=== PATIENT | female | born 1960 | race Caucasian/White ===

== ENCOUNTER 2024-09-03 10:27 | Outpatient (RCR) | payer OTHER, MEDICAID, SELFPAY ==
--- NOTE | 2024-09-03 17:18 | ST.OPIE ---
Visit Care Team Role Provider Type Ruth Davila PA-C Attending Provider Non-Staff Family Provider Primary Care Provider Referring Provider Specialty: Medical Address: [address] [place] [address], [place], [id number] Email: Speech-Language Pathology Initial Evaluation INK GRINDER Voice Resonance Evaluation Start: 09/03/24 17:00 Freq: Status: Active Protocol: Document 09/03/24 17:00 SS (Rec: 09/03/24 17:18 SS [id number]) Voice and Resonance Assessment Session Time Visit Start Time 10:45 Visit Stop Time 11:20 Total Visit Minutes 35 Visit Information Visit Number 1 Plan of Care Dates 09/03/24-01/01/25 Insurance Information [facility] [employer] (max 12 visits including evaluation) VISIT 08/23 Next Note Type Next Note Type Treatment Note Referral Referring Physician Dr. Ruth Davila Reason for Referral Dysphonia Setting Setting Outpatient Care Patient History Patient History Hayde Malagon is a 64-year- old female presenting to this clinic for an evaluation of voice following referral by her PCP, Dr. Davila. She reports she has not been seen by an ENT. PMHx includes GERD which she manages with medication. She reports she has a ?slight case? of asthma and a history of bronchitis, though has not had active symptoms in several years. Pt reports that that her voice began sounding hoarser about two years ago. She also reports vocal breaks and general vocal fatigue as day progresses and speaks more. She denies recent hx of URIs and pain with phonation. She reports increased difficulty with swallowing, noting increased effort. Pt reports that she does not drink alcohol, does not consume caffeine, and does not smoke. She drinks about six glasses of water every day. Vocal activities include speaking on the phone and socially. While her dysphonia has not significantly impacted her ability to communicate, she often avoids speaking for extended periods of time or in crowded/noisy environments. Pt was previously seen at [facility] for a voice evaluation in 2022, though did not attend treatment sessions and POC was discontinued. Hearing Hearing Level Normal Vision Vision Status Not Impaired Educational Status Education Level BA degree Occupational Status Occupation Status Currently unemployed Previous Therapy Previous Speech-Language Therapy No History of Previous Therapy Evaluation of voice. Pt did not attend treatment sessions. Oral Motor Assessment Source: [employer] ([employer] Oral-Motor Eval Completed Yes Oral-Motor Assessment CN V (Trigeminal) Intact b/l CN VII (Facial) Intact b/l CN IX/X (Glossopharyngeal/ Vagus) Unable to exclude CN X branch involvement 2/2 dysphonia CN XII (Hypoglossal) Intact b/ l Subjective Subjective Pt arrived to the session on time. She agreed to participate in all therapy activities. - Laryngeal Performance S/Z Ratio S/Z Ratio 12.57/20.84 Functional for Speech Yes Reduced Laryngeal Function Relative to No Respiration Voice Handicap Index Function Subtotal 0 Physical Subtotal 7 Emotional Subtotal 3 Total Score 10 Severity Mild (0-30) CAPE-V Overall Severity Mild characterized by mild roughness and strain Roughness 15 Breathiness 0 Strain 15 Pitch 0 Loudness 0 Normal Resonance? Yes Additional Features Pitch Instability Maximum Phonation Time MPT Norms: Women (15-25) Men (25-35) Loudness (50-60 dB); Speaking Rate: Oral Reading of Sentences (190 Words Per Minute); Oral Reading of Paragraphs (160-170 WPM); Speaking Rate in Conversation (150-250 WPM) Maximum Phonation Time 17.43 Maximum Phonation Time Adequate for Speech,Reduced, Unstable Pitch Maximum Phonation Time Comments Vocal breaks noted Voice Pitch Range Norms: Women (100-300 Hz) Men (70-250 Hz) Fundamental Frequency Norms: Women (Mean: 225 Hz; Range: 155-334 Hz) Men ( Mean: 128 Hz; Range: 85-196 Hz) Voice Pitch Normal Voice Loudness Normal Voice Phonatory-based Quality Harsh,Hoarse,Pitch Breaks Paradoxical Vocal Fold Movement No Indications Resonance Nasal Resonance Normal Oral Resonance Normal Other Observations Inadequate Breath Support, Throat Clearing Findings Findings Mild Impairment Observations Respiration was assessed by observing the patient?s breathing at rest. In regards to speech, breath support was adequate during normal speech production. Loudness was WNL. Pitch range was WNL during conversation. Mildly hoarse and rough vocal quality during conversation and speech tasks . Patient?s intelligibility judged to be WNL. Patient?s speech not present with hypernasality/hyponasality. Prosody judged to be WNL in terms of stress and intonation in conversation and structured speech tasks. 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 Patient? s dysphonia is characterized by mildly hoarse and harsh vocal quality. Patient?s speech is WNL and 100% intelligible. She reports her speech affects her ability to speak on the phone and her social participation. Prognosis for stated goals is good pending cooperation and motivation. Improvement will be contingent upon pt compliance to the following recommendations. Recommendations are for skilled speech rehabilitation in the outpatient speech therapy clinic for 3 months once a week l to improve vocal quality via exercises and use of resonant voice. Plan to follow up with voice therapy after ENT consult. Prognosis Rehabilitation Potential Good - Recommendations Treatment Recommended Yes Treatment Frequency/Duration Once a week for 3 months Therapy Recommendations Pt will receive education re: the voice subsystems with the goal of improving balance among the subsystems by increasing vocal tract inertance, resulting in a more efficient voice, and reducing hyperfunction. Pt will be trained in the following voice exercises: resonant voice exercises, SOVTE, stretch and flow, and diaphragmatic breathing pending ENT assessment. Short Term Goals 1. Pt will see ENT to further assess laryngeal function to further inform POC. 09/03/24: INK GRINDER to request referral from PCP he to resume POC once assessment is complete. 2. Pt will complete voice exercises (e.g., resonant voice exercises, SOVTE, stretch and flow, and diaphragmatic breathing) accurately in 80% of opportunities over three sessions in order to target increased respiratory control and coordination with voice, improved vocal quality, and reduced hyperfunction 3. Pt will participate in daily HEP addressing dysphonia per pt report. Senior Care Goals 1. Pt will increase self- perception of voice and speech from a baseline of 52/120 on the VHI-30 following participation in [facility] services. 2. Pt will produce spontaneous speech using resonant voice with minimal verbal cueing in order to improve communication effectiveness and overall vocal quality. Referrals Referrals ENT Patient/Caregiver Education Patient/Family Education Patient Understanding
--- NOTE | 2024-09-03 17:19 | ST.OPPOC ---
Physical, Occupational & Speech Therapy At [facility] Visit Care Team Role Provider Type Ruth Davila PA-C Attending Provider Non-Staff Family Provider Primary Care Provider Referring Provider Address: [address] [place] [address], [id number] Speech Pathology Plan of Care Plan of Care Dates 09/03/24-01/01/[address] Ruth Davila Patient History Hayde Malagon is a 64-year-old female presenting to this clinic for an evaluation of voice following referral by her PCP, Dr. Davila. She reports she has not been seen by an ENT. PMHx includes GERD which she manages with medication. She reports she has a ?slight case? of asthma and a history of bronchitis, though has not had active symptoms in several years. Pt reports that that her voice began sounding hoarser about two years ago. She also reports vocal breaks and general vocal fatigue as day progresses and speaks more. She denies recent hx of URIs and pain with phonation. She reports increased difficulty with swallowing, noting increased effort. Pt reports that she does not drink alcohol, does not consume caffeine, and does not smoke. She drinks about six glasses of water every day. Vocal activities include speaking on the phone and socially. While her dysphonia has not significantly impacted her ability to communicate, she often avoids speaking for extended periods of time or in crowded/noisy environments. Pt was previously seen at [facility] for a voice evaluation in 2022, though did not attend treatment sessions and POC was discontinued. Voice/Resonance Findings Mild Impairment Voice/Resonance Prognosis Good Voice/Resonance Yes Recommendations Voice/Resonance Treatment Once a week for 3 months Frequency Therapy Recommendations Pt will receive education re: the voice subsystems with the goal of improving balance among the subsystems by increasing vocal tract inertance, resulting in a more efficient voice, and reducing hyperfunction. Pt will be trained in the following voice exercises: resonant voice exercises, SOVTE, stretch and flow, and diaphragmatic breathing pending ENT assessment. Short Term Goals 1. Pt will see ENT to further assess laryngeal function to further inform POC. 09/03/24: SCHOOL TRANSPORTATION SUPERVISOR to request referral from PCP he to resume POC once assessment is complete. 2. Pt will complete voice exercises (e.g., resonant voice exercises, SOVTE, stretch and flow, and diaphragmatic breathing) accurately in 80% of opportunities over three sessions in order to target increased respiratory control and coordination with voice, improved vocal quality, and reduced hyperfunction 3. Pt will participate in daily HEP addressing dysphonia per pt report. Substation Operator Automatic Goals 1. Pt will increase self-perception of voice and speech from a baseline of 52/120 on the VHI-30 following participation in skilled services. 2. Pt will produce spontaneous speech using resonant voice with minimal verbal cueing in order to improve communication effectiveness and overall vocal quality. Comment: Electronically Signed by: SHERICE Medeiros 09/03/24 1120 If you are in agreement with this Plan of Care, please return a signed and dated copy. I have reviewed this Plan of Care and certify that the skilled therapy services above are required to meet the patient?s needs. Physician Signature Date Printed Name and Credentials Clinical Instructor Signature Printed Name and Credentials
--- NOTE | 2024-11-23 10:11 | ST-OP ANOTE ---
Physical, Occupational & Speech Therapy At [facility] Speech Therapy Note INTERPRETATIVE DANCER called pt as pt has not been seen for treatment since initial evaluation on 09/03/24. Pt expressed that she has an ENT appointment scheduled for later in the month and may follow-up if voice treatment is recommended. INTERPRETATIVE DANCER to follow-up as needed.
--- NOTE | 2025-01-01 13:44 | ST.OPDS ---
Visit Care Team Role Provider Type Ruth Davila PA-C Attending Provider Non-Staff Family Provider Primary Care Provider Referring Provider Address: [address] [place] [address], [id number] Pt has not made contact with BOX ATTACHER or called clinic since phone call on 11/23/24 during which she expressed she had an ENT evaluation scheduled that month. Pt account discharged at this time. Recommend pt request new order for BOX ATTACHER services if she would like to pursue voice treatment again.
== END 2025-01-06 10:26 | disposition home or self-care (01) ==
LOC: SP 10:27
PROVIDERS: Family Provider Physician Assistant; PCP Physician Assistant; Referring Provider Physician Assistant; Visit Provider Physician Assistant
DX: R49.0 Dysphonia (principal)
CPT/HCPCS: 92524